=== PATIENT | female | born 1990 | race American Indian/Alaskan Native ===

== ENCOUNTER 2019-10-06 22:19 | Emergency (ER) | payer BC ==
[2019-10-07 02:38] VITALS: BP 120/83
--- NOTE | 2019-10-07 04:17 | Emergency Department Report ---
ED General Adult HPI - General Chief complaint: Extremity Injury, Upper Stated complaint: ARM PAIN Source: patient Mode of arrival: Ambulatory Limitations: No Limitations - History of Present Illness Initial comments: Patient is a 29-year-old female with no past medical history who presented to the ED with convent of acute onset persistent itchy mildly erythematous maculopapular urticarial rash with a burning sensation on the left forearm the last 8 hours. Patient unsure of the etiology of the itching and burning sensation in the left forearm. Patient also complains of diffuse left tingling and numbness sensation. Patient denies chest pain, shortness of breath, neck pain, dizziness, syncope, heavy lifting, fall, traumatic injury, dizziness, fever, chills, nausea and vomiting. MD Complaint: left forearm itching rash, burning sensation -: Sudden, hour(s) (8) Location: upper extremity (left forearm) Radiation: non-radiation Severity scale (0 -10): 8 Quality: burning, dull Consistency: constant Worsens with: none Associated Symptoms: denies other symptoms, rash (erythematous erythematous maculopapular itchy urticarial rash). denies: confusion, chest pain, cough, diaphoresis, fever/chills, headaches, loss of appetite, malaise, seizure, shortness of breath, syncope, weakness Treatments Prior to Arrival: none - Related Data Previous Rx's Medication Instructions Recorded Last Taken Type Naproxen 500 mg PO Q12H PRN #20 tablet 10/07/19 Unknown Rx Prednisone [predniSONE 10 mg 10 mg PO .TAPER #21 tab.ds.pk 10/07/19 Unknown Rx (6-Day Pack, 21 Tabs)] Triamcinolone Acetonide 15 gm TP Q12H #1 tube 10/07/19 Unknown Rx diphenhydrAMINE [Benadryl CAP] 25 mg PO Q6HR PRN #30 capsule 10/07/19 Unknown Rx Allergies Allergy/AdvReac Type Severity Reaction Status Date / Time No Known Allergies Allergy Unverified 10/06/19 23:03 ED Review of Systems ROS: Stated complaint: ARM PAIN Other details as noted in HPI Constitutional: denies: chills, fever Eyes: denies: eye pain, eye discharge, vision change ENT: denies: ear pain, throat pain Respiratory: denies: cough, shortness of breath, wheezing Cardiovascular: denies: chest pain, palpitations Endocrine: no symptoms reported Gastrointestinal: denies: abdominal pain, nausea, vomiting, diarrhea Genitourinary: denies: urgency, dysuria, discharge Musculoskeletal: arthralgia (left arm diffuse tingling and numbness sensation). denies: back pain, joint swelling Skin: rash (erythematous maculopapular with a cardio rash on left forearm), change in color (erythematous), pruritus. denies: lesions Neurological: denies: headache, weakness, paresthesias Psychiatric: denies: anxiety, depression Hematological/Lymphatic: denies: easy bleeding, easy bruising ED Past Medical Hx - Past Medical History Previous Medical History?: No - Surgical History Past Surgical History?: Yes Additional Surgical History: Cyst removed from both breast 2006 - Social History Smoking Status: Never Smoker - Medications Home Medications: Home Medications Medication Instructions Recorded Confirmed Last Taken Type Naproxen 500 mg PO Q12H PRN #20 tablet 10/07/19 Unknown Rx Prednisone [predniSONE 10 mg 10 mg PO .TAPER #21 tab.ds.pk 10/07/19 Unknown Rx (6-Day Pack, 21 Tabs)] Triamcinolone Acetonide 15 gm TP Q12H #1 tube 10/07/19 Unknown Rx diphenhydrAMINE [Benadryl CAP] 25 mg PO Q6HR PRN #30 capsule 10/07/19 Unknown Rx ED Physical Exam - General Limitations: No Limitations General appearance: alert, in no apparent distress - Head Head exam: Present: atraumatic, normocephalic - Eye Eye exam: Present: normal appearance, PERRL, EOMI Pupils: Present: normal accommodation - ENT ENT exam: Present: normal exam, normal orophraynx, mucous membranes moist, TM's normal bilaterally, normal external ear exam - Neck Neck exam: Present: normal inspection, full ROM. Absent: tenderness, lymphadenopathy - Respiratory Respiratory exam: Present: normal lung sounds bilaterally. Absent: respiratory distress, wheezes, rales, rhonchi, chest wall tenderness, decreased breath sounds, prolonged expiratory - Cardiovascular Cardiovascular Exam: Present: regular rate, normal rhythm, normal heart sounds. Absent: systolic murmur, diastolic murmur, rubs, gallop - GI/Abdominal GI/Abdominal exam: Present: soft, normal bowel sounds. Absent: tenderness, guarding, hyperactive bowel sounds, hypoactive bowel sounds, organomegaly - Extremities Exam Extremities exam: Present: normal inspection - Back Exam Back exam: Present: normal inspection - Neurological Exam Neurological exam: Present: alert, oriented X3 - Psychiatric Psychiatric exam: Present: normal affect, normal mood - Skin Skin exam: Present: warm, dry, intact, normal color. Absent: rash ED Course Vital Signs 10/06/19 10/07/19 10/07/19 22:25 02:37 02:38 Temperature 98.3 F 98.1 F Pulse Rate 106 H 90 Respiratory 18 18 16 Rate Blood Pressure 135/73 Blood Pressure 120/83 [Left] O2 Sat by Pulse 98 100 100 Oximetry ED Medical Decision Making - Medical Decision Making This is a 29-year-old female who presented to the ED with acute onset persistent itchy erythematous maculopapular urticarial rash on the left forearm with a burning sensation, as well as tingling and numbness sensation of diffuse left arm. In the ED, patient is alert and oriented 3 and is not in distress. Patient was higher tachycardic in triage. Based on the physical exam findings, patient's symptoms are likely due to acute localized allergic reaction on the left forearm resulting in erythematous maculopapular urticarial rashes. Patient was treated for acute allergic reaction and discharged home on medications. Patient was advised to follow-up with his primary care physician in 5-7 days for reevaluation. Patient was also advised to return to the emergency Department immediately if symptoms get worse. - Differential Diagnosis allergic reaction; Urticaria; Contact dermatitis; Irritant dermatitis Critical care attestation.: If time is entered above; I have spent that time in minutes in the direct care of this critically ill patient, excluding procedure time. ED Disposition Clinical Impression: Left cervical radiculopathy Acute allergic reaction Qualifiers: Encounter type: initial encounter Qualified Code(s): T78.40XA - Allergy, unspecified, initial encounter Contact dermatitis Qualifiers: Contact dermatitis type: unspecified Contact dermatitis trigger: unspecified trigger Qualified Code(s): L25.9 - Unspecified contact dermatitis, unspecified cause Disposition: -01 TO HOME OR SELFCARE Is pt being admited?: No Does the pt Need Aspirin: No Condition: Stable Instructions: Cervical Radiculopathy (ED), Contact Dermatitis (ED), Urticaria (ED) Additional Instructions: Take medication with food, drink plenty of fluids and follow-up with her primary care physician in 7-10 days for reevaluation. Return to the ED immediately if symptoms get worse. Prescriptions: diphenhydrAMINE [Benadryl CAP] 25 mg PO Q6HR PRN #30 capsule PRN Reason: Allergy Symptoms Naproxen 500 mg PO Q12H PRN #20 tablet PRN Reason: Pain , Severe (7-10) Prednisone [predniSONE 10 mg (6-Day Pack, 21 Tabs)] 10 mg PO .TAPER #21 tab.ds.pk Triamcinolone Acetonide 15 gm TP Q12H #1 tube Referrals: SANJUANA BENAVIDEZ MD [Staff Physician] - 3-5 Days Time of Disposition: 04:23 Print Language: HEBREW
== END 2019-10-07 04:36 | disposition home or self-care (01) ==
LOC: ED 22:19
DX: M54.12 Radiculopathy, cervical region (principal); T78.40XA Allergy, unspecified, initial encounter; Z98.890 Other specified postprocedural states; Z79.899 Other long term (current) drug therapy; X58.XXXA Exposure to other specified factors, initial encounter
CPT/HCPCS: 99281